=== PATIENT | male | born 1970 | race Caucasian/White ===

== ENCOUNTER 2024-07-12 10:29 | Inpatient (IN) | payer BC, OTHER ==
[2024-07-12] MEDS ORDERED: Sodium Chloride 0.9% 10 ML Syringe FLUSH PRN (10:58)
[2024-07-12 11:20] LABS: BASOPHILS ABSOLUTE AUTO 0.1 x10^3/uL (0.0-0.2); BASOPHILS PERCENT AUTO 0.4 % (0.2-1.2); EOSINOPHILS ABSOLUTE AUTO 0.2 x10^3/uL (0.0-0.5); EOSINOPHILS PERCENT AUTO 1.7 % (0.0-4.0); HEMATOCRIT 45.2 % (40.0-52.0); HEMOGLOBIN 16.8 g/dL (14.0-18.0); LYMPHOCYTES ABSOLUTE AUTO 2.1 x10^3/uL (1.0-4.8); LYMPHOCYTES PERCENT AUTO 14.6 % (25.0-50.0); MEAN CORPUSCULAR HEMOGLOBIN 31.8 pg (26.0-32.0); MEAN CORPUSCULAR HGB CONC 37.2 g/dL (32.0-36.0); MEAN CORPUSCULAR VOLUME 85.4 fL (78.0-93.0); NEUTROPHILS ABSOLUTE AUTO 9.6 x10^3/uL (1.8-7.7); NEUTROPHILS PERCENT AUTO 67.9 % (50.0-80.0); PLATELET COUNT,PLT 335 x10^3/uL (130-400); RED BLOOD CELL COUNT 5.29 x10^6/uL (4.5-6.0); WHITE BLOOD CELL COUNT,WBC 14.2 x10^3/uL (4.0-10.0)
[2024-07-12] MEDS: Lactated Ringers 1,000 ML IV ONE (11:21)
[2024-07-12 11:37] LABS: ALANINE AMINOTRANSFERASE,ALT 35 U/L (16-63); ALBUMIN 3.6 g/dL (3.4-5.0); ALKALINE PHOSPHATASE 63 U/L (46-116); ASPARTATE AMNIOTRANSFERASE,AST 22 U/L (15-37); BLOOD UREA NITROGEN,BUN 31 mg/dL (7-18); CALCIUM 9.5 mg/dL (8.5-10.1); CARBON DIOXIDE,CO2 20 mmol/L (21-32); CHLORIDE,CL 88 mmol/L (98-107); CREATININE 2.1 mg/dL (0.70-1.30); GLUCOSE RANDOM 132 mg/dL (70-99); POTASSIUM,K 3.3 mmol/L (3.5-5.1); PROTEIN TOTAL,TP 8.1 g/dL (6.4-8.2)
[2024-07-12 11:39] LABS: ANION GAP 18.3 mmol/L (5-15); ESTIMATED GFR 36 mL/min (>=60); SODIUM,NA 123 mmol/L (136-145)
[2024-07-12] MEDS: Sodium Chloride 3% 50 ML IV ONE ×2 (11:49→12:50)
[2024-07-12 11:57] LABS: CORONAVIRUS COVID-19 NAA NEGATIVE (NEGATIVE); INFLUENZA A NAA NEGATIVE (NEGATIVE); INFLUENZA B NAA NEGATIVE (NEGATIVE)
[2024-07-12] MEDS: Iopamidol 612 MG/ML 100 ML Bottle IVPUSH ONE (12:11)
[2024-07-12 12:45] LABS: CALCIUM 8.9 mg/dL (8.5-10.1); CREATININE 2.1 mg/dL (0.70-1.30); POTASSIUM,K 3.4 mmol/L (3.5-5.1)
[2024-07-12 12:48] LABS: ANION GAP 16.4 mmol/L (5-15); EST CRCL DRUG DOSING (CG) 44.92 mL/min
[2024-07-12] MEDS ORDERED: oxyCODONE 5 MG Tab PO PRN (13:59)
[2024-07-12] MEDS ORDERED: Ondansetron 4 MG Tab.DIS PO PRN (13:59)
[2024-07-12] MEDS ORDERED: Prochlorperazine 10 MG/2 ML SDV IV PRN (13:59)
[2024-07-12] MEDS ORDERED: Acetaminophen 325 MG Tab PO PRN (13:59)
[2024-07-12] MEDS: metroNIDAZOLE/Normal Saline 500 MG in Premix Bag 1 BAG IV SCH (14:44)
[2024-07-12] MEDS: Calcium Carbonate 750 MG Tab.Chew PO PRN (15:34)
[2024-07-12] MEDS: Ciprofloxacin in D5W 400 MG in Premix Bag 1 BAG IV SCH (16:15)
[2024-07-12] MEDS ORDERED: Albuterol HFA 18 Gm Inhaler INH PRN (17:20)
[2024-07-12] MEDS: Lactated Ringers 1,000 ML IV SCH (17:30)
[2024-07-12] MEDS: Potassium Chloride 10 MEQ Tab.ER PO SCH (19:15)
[2024-07-12] MEDS: Formoterol/Mometasone 200-5 MCG 13 GM Inhaler INH SCH (20:29)
[2024-07-13 07:04] LABS: BASOPHILS PERCENT AUTO 0.3 % (0.2-1.2); EOSINOPHILS ABSOLUTE AUTO 0.4 x10^3/uL (0.0-0.5); EOSINOPHILS PERCENT AUTO 3.2 % (0.0-4.0); HEMATOCRIT 38.3 % (40.0-52.0); HEMOGLOBIN 14.5 g/dL (14.0-18.0); IMMATURE GRAN ABSOLUTE AUTO 0.42 x10^3/uL (0.00-0.07); LYMPHOCYTES ABSOLUTE AUTO 1.8 x10^3/uL (1.0-4.8); LYMPHOCYTES PERCENT AUTO 14.3 % (25.0-50.0); MEAN CORPUSCULAR HEMOGLOBIN 32.4 pg (26.0-32.0); MEAN CORPUSCULAR HGB CONC 37.9 g/dL (32.0-36.0); MEAN CORPUSCULAR VOLUME 85.5 fL (78.0-93.0); MONOCYTES ABSOLUTE AUTO 1.3 x10^3/uL (0.0-0.8); MONOCYTES PERCENT AUTO 10.7 % (2.0-11.0); NEUTROPHILS ABSOLUTE AUTO 8.4 x10^3/uL (1.8-7.7); NEUTROPHILS PERCENT AUTO 68.1 % (50.0-80.0); PLATELET COUNT,PLT 253 x10^3/uL (130-400); RED BLOOD CELL COUNT 4.48 x10^6/uL (4.5-6.0); WHITE BLOOD CELL COUNT,WBC 12.3 x10^3/uL (4.0-10.0)
[2024-07-13 07:21] LABS: A/G RATIO 0.77; BILIRUBIN TOTAL 0.7 mg/dL (0.2-1.0); CALCIUM 8.3 mg/dL (8.5-10.1); CREATININE 1.5 mg/dL (0.70-1.30); EST CRCL DRUG DOSING (CG) 62.88 mL/min; POTASSIUM,K 3.1 mmol/L (3.5-5.1); PROTEIN TOTAL,TP 6.9 g/dL (6.4-8.2)
[2024-07-13 07:22] LABS: ANION GAP 13.1 mmol/L (5-15)
[2024-07-13] MEDS: Montelukast 10 MG Tab PO SCH (08:56)
[2024-07-13] MEDS: Enoxaparin 40 MG/0.4 ML Syringe SUBCUT SCH (08:56)
[2024-07-13] MEDS: Sertraline 50 MG Tab PO SCH (08:56)
[2024-07-13] MEDS: Lisinopril 20 MG Tab PO SCH (08:56)
[2024-07-13] MEDS: Sodium Chloride 1 GM Tab PO SCH (11:13)
[2024-07-13] MEDS: Loperamide 2 MG Cap PO PRN (11:13)
[2024-07-13] MEDS: metroNIDAZOLE 500 MG Tab PO SCH (13:48)
[2024-07-13] MEDS: Ciprofloxacin 500 MG Tab PO SCH (20:04)
[2024-07-13] MEDS: Lactobacillus Rhamnosus GG (Probiotic) Cap PO SCH (21:12)
[2024-07-14 06:46] LABS: BASOPHILS PERCENT AUTO 0.2 % (0.2-1.2); EOSINOPHILS ABSOLUTE AUTO 0.3 x10^3/uL (0.0-0.5); EOSINOPHILS PERCENT AUTO 3.3 % (0.0-4.0); IMMATURE GRAN ABSOLUTE AUTO 0.47 x10^3/uL (0.00-0.07); LYMPHOCYTES ABSOLUTE AUTO 1.9 x10^3/uL (1.0-4.8); MEAN CORPUSCULAR HEMOGLOBIN 32.3 pg (26.0-32.0); MEAN CORPUSCULAR HGB CONC 36.1 g/dL (32.0-36.0); MEAN CORPUSCULAR VOLUME 89.3 fL (78.0-93.0); MONOCYTES ABSOLUTE AUTO 1.1 x10^3/uL (0.0-0.8); MONOCYTES PERCENT AUTO 10.6 % (2.0-11.0); NEUTROPHILS ABSOLUTE AUTO 6.6 x10^3/uL (1.8-7.7); NEUTROPHILS PERCENT AUTO 63.4 % (50.0-80.0); PLATELET COUNT,PLT 251 x10^3/uL (130-400); RED BLOOD CELL COUNT 4.03 x10^6/uL (4.5-6.0); WHITE BLOOD CELL COUNT,WBC 10.4 x10^3/uL (4.0-10.0)
[2024-07-14 07:02] LABS: A/G RATIO 0.74; ALBUMIN 2.8 g/dL (3.4-5.0); BILIRUBIN TOTAL 0.3 mg/dL (0.2-1.0); CALCIUM 8.2 mg/dL (8.5-10.1); EST CRCL DRUG DOSING (CG) 94.33 mL/min; PROTEIN TOTAL,TP 6.6 g/dL (6.4-8.2)
== END 2024-07-14 11:20 | disposition home or self-care (01) | DRG 244 ==
LOC: VM.ED 10:29 → VM.MS 13:15
PROVIDERS: ADMIT Family Medicine; ATTEND Family Medicine
DX: K57.92 Diverticulitis of intestine, part unspecified, without perforation or abscess without bleeding (principal); N17.9 Acute kidney failure, unspecified; E87.1 Hypo-osmolality and hyponatremia; I95.9 Hypotension, unspecified; E86.0 Dehydration; I10 Essential (primary) hypertension; Z68.37 Body mass index [BMI] 37.0-37.9, adult; E87.6 Hypokalemia; G47.33 Obstructive sleep apnea (adult) (pediatric); K21.9 Gastro-esophageal reflux disease without esophagitis; E78.00 Pure hypercholesterolemia, unspecified; J45.909 Unspecified asthma, uncomplicated; F34.1 Dysthymic disorder; E66.09 Other obesity due to excess calories; Z88.0 Allergy status to penicillin; Z88.1 Allergy status to other antibiotic agents; Z79.899 Other long term (current) drug therapy
CPT/HCPCS: 0240U; 36415; 74176; 80048; 80053; 83605; 83690; 84295; 85025; 87045; 87046; 87493; 96360; 96361; 99285-25; 99291; A9270-GY; J0744; J1650; J1836; J7040; J7120